=== PATIENT | female | born 1985 | race Caucasian/White ===

== ENCOUNTER 2017-04-07 18:50 | Emergency (ER) | payer OTHER ==
[2017-04-07 19:02] VITALS: BP 102/56; PULSE 81; RESP 16; TEMP 98.4; O2SAT 95
[2017-04-07] MEDS ORDERED: TDAP ADULT 0.5 ML INJ (BOOSTRIX) IM ONE (19:11)
--- NOTE | 2017-04-07 19:11 | EDPHY ---
H & P Time Seen by Provider: 04/07/17 19:02 HPI/ROS: CHIEF COMPLAINT: Left middle finger laceration HISTORY OF PRESENT ILLNESS: Patient was opening a can of beans just prior to arrival and cut the tip of her left middle finger. No weakness or numbness and no other injuries. REVIEW OF SYSTEMS: As above PAST MEDICAL HISTORY: Trying to get , tetanus not up-to-date. General Appearance: Alert and conversant, cooperative. 5 mm flap laceration on the volar side of the left middle finger tip. Does not involve the nail. Well approximated. Flexor and extensor tendon function intact. Normal capillary refill. Normal 2 point discrimination. Emergency Department course/MDM: Digital block discussed and consented, 3 mL is of 0.5% bupivacaine after standard sterile prep. Standard wound care and dressing applied. I think this will heal better without sutures, discussed with the patient and consented. Dressing applied. Tetanus updated. Smoking Status: Never smoked Constitutional: Initial Vital Signs Temperature (C) 36.9 C 04/07/17 18:57 Heart Rate 81 04/07/17 18:57 Respiratory Rate 16 04/07/17 18:57 Blood Pressure 102/56 L 04/07/17 18:57 O2 Sat (%) 95 04/07/17 18:57 O2 Delivery Mode Room Air Allergies/Adverse Reactions: ciprofloxacin [From Cipro] Allergy (Intermediate, Verified 04/29/12 05:26) ciprofloxacin HCl [From Cipro] Allergy (Intermediate, Verified 04/29/12 05:26) Penicillins Allergy (Intermediate, Verified 04/29/12 05:26) Sulfa (Sulfonamide Antibiotics) [Sulfa(Sulfonamide Antibiotics)] Allergy ( Intermediate, Verified 04/29/12 05:26) Home Medications: Medication Instructions Recorded No Medications [NO [place] 1 [place] [facility] [place]ICATIONS[place] Ondansetron Odt [Zofran Odt 4 mg 4 mg PO Q4PRN PRN #7 tab 11/13/15 (*)] MDM/Departure - MDM Medications Given: Discontinued Medications Diphtheria/Tetanus/Acell Pertussis (Boostrix) 0.5 ml IM .ONCE ONE Stop: 04/07/17 19:12 Last Admin: 04/07/17 19:20 Dose: 0.5 ml - Depart Disposition: Home, Routine, Self-Care Clinical Impression: Laceration of left middle finger Condition: Good Instructions: Acute Wounds (ED) Additional Instructions: You got a tetanus booster today. Leave the dressing on and keep it clean and dry for 48 hours, then wound care as instructed. Referrals: Florinda Cazares MD [Primary Care Provider] - As per Instructions
== END 2017-04-07 19:36 | disposition home or self-care (01) ==
DX: S61.213A Laceration without foreign body of left middle finger without damage to nail, initial encounter (principal); Z23 Encounter for immunization; W27.4XXA Contact with kitchen utensil, initial encounter

== ENCOUNTER 2018-04-22 09:25 | Emergency (ER) | payer OTHER ==
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
[2018-04-22] MEDS ORDERED: ONDANSETRON DISINTEGRATING 4 MG TAB PO ONE ×2 (10:10)
[2018-04-22 13:09] VITALS: BP 126/64
== END 2018-04-22 13:07 | disposition home or self-care (01) ==
DX: O9A.211 Injury, poisoning and certain other consequences of external causes complicating pregnancy, first trimester (principal); S19.9XXA Unspecified injury of neck, initial encounter; Z3A.13 13 weeks gestation of pregnancy; Z67.91 Unspecified blood type, Rh negative; V49.40XA Driver injured in collision with unspecified motor vehicles in traffic accident, initial encounter; Y92.410 Unspecified street and highway as the place of occurrence of the external cause; Y99.8 Other external cause status; Y93.89 Activity, other specified

== ENCOUNTER → 2018-09-03 | Outpatient (CLI) | payer OTHER | LOC: FIMAGING 10:07 | PROVIDERS: ATTEND Family Medicine | DX: M54.2 Cervicalgia (principal) ==

== ENCOUNTER 2018-10-26 00:15 | Inpatient (IN) | payer OTHER ==
[2018-10-26] MEDS ORDERED: TERBUTALINE SULFATE 1 MG/ML VIAL IV PRN (00:33)
[2018-10-26] MEDS ORDERED: LIDOCAINE 1% 300 MG/30 ML SDV SC PRN (00:33)
[2018-10-26] MEDS ORDERED: LR 1,000 ML IV PRN (00:33)
[2018-10-26] MEDS ORDERED: IBUPROFEN 600 MG TAB PO PRN (00:33)
[2018-10-26] MEDS ORDERED: EPSOM SALT 454 GM TP PRN (00:33)
[2018-10-26] MEDS ORDERED: MISOPROSTOL 200 MCG TAB PR PRN (00:33)
[2018-10-26] MEDS ORDERED: OXYTOCIN/RINGERS LACTATE 1,000 ML IV PRN (00:33)
[2018-10-26] MEDS ORDERED: OLIVE OIL 118 ML BTL MISC PRN (00:33)
[2018-10-26] MEDS ORDERED: TERBUTALINE SULFATE 1 MG/ML VIAL ONE (00:34)
[2018-10-26] MEDS ORDERED: OXYTOCIN 10 UNIT/ML VIAL ONE (00:34)
[2018-10-26] MEDS ORDERED: OLIVE OIL 118 ML BTL ONE (00:34)
[2018-10-26] MEDS ORDERED: MISOPROSTOL 200 MCG TAB ONE (00:34)
[2018-10-26] MEDS ORDERED: LIDOCAINE 1% 300 MG/30 ML SDV ONE (00:34)
[2018-10-26] MEDS ORDERED: AMMONIA AROMATIC 1 EACH AMP IH ONE (00:34)
--- NOTE | 2018-10-26 00:52 | PDGENHP ---
History and Physical History and Physical: Care: [facility] HPI: Patient is a [id number] with IUP @ 40-0 weeks that presents to L&D with complaints of contractions over the last 48 hours, but worse since 2099. she denies any LOF, VB. She reports +FM. She rates pain with contractions 05/08, denies any alleviating or aggravating factors. EDC: 10/26/18 which is based on Ultrasound at 8 weeks. Her is complicated by: Rh Negative, unsure LMP- EDC by 8wk US, GBS+ Review of Systems: Constitutional: Denies any fever, chills, or fatigue HEENT: denies any visual changes, difficulty swallowing, hearing loss Cardiovascular: Denies any chest pain, palpitations, leg swelling Respiratory: denies any cough, wheezing, or shortness of breathe GI: Denies any nausea, vomiting, diarrhea, constipation : denies any dysuria, urgency, frequency, vaginal bleeding Musculoskeletal: denies any muscle or bone pain Skin: denies any rashes Neuro: denies any headache, seizures, lightheadedness, dizziness, or loss of consciousness Psychiatric: denies any depression, anxiety, or SI/HI thoughts HISTORY: Previous OB history: 6#8, SAB 2016, EAB 2009 Past medical history: noncontributory Past surgical history: oral surgery, breast lumpectomy Social: Denies any alcohol, tobacco, or drug use. Family history: Not relevant Medications: PNV, rhogam Allergies (list reaction): sulfa, cipro, PCN- throat swelling LABS: Rh: A Negative ABS: Neg Rubella: Immune HbsAg: NR HIV: NR VDRL: NR 1hr: 82 GC: Neg Chlamydia: Neg Pap: Normal GBS: + PHYSICAL EXAM: Constitutional: WN, A&Ox3 HEENT: normocephalic atraumatic, supple Skin: Warm, dry, intact Heart: RRR, no murmur Chest: CTA-B Abdomen: Soft, nontender, gravid SVE: /-1 Extremities: trace edema, negative homans sign Neuro: grossly normal Psych: normal affect assessment: FHT baseline 130 +accels, no decels, moderate variability Contractions: toco q 2-5 min Assessment: 1) [id number] with IUP@40-0wks 2) active labor 3) GBS + 4) Cat 1 FHR tracing Plan: 1) Admit to L&D 2) IV abx, vancomycin (pharm to dose) 3) reassess 2hr/PRN Today's visit was approximately 30 min, of which >50% of visit 20 min, was spent face to face with pt on direct counseling/coordination of care.
[2018-10-26 00:56] LABS: PLATELET COUNT 260 10^3/uL (150-400)
[2018-10-26] MEDS ORDERED: VANCOMYCIN 750 MG in D5W 150 ML IV SCH (01:30)
--- NOTE | 2018-10-26 02:38 | OBDEL ---
Info Type: Vaginal Presentation at Delivery: Vertex L&D Analgesia/Anesthesia Type: None GBS+: Yes Antibiotic Used for + GBS: Vancomycin Intrapartum Medications: Generic Name Dose Route Start Last Admin Trade Name Iris PRN Reason Stop Dose Admin Lactated Ringer's 1,000 mls @ 0 mls/hr 10/26/18 00:33 10/26/18 01:00 Lr IV 10/27/18 00:32 1,000 mls PRN PRN Administration SEE PROTOCOL CONDITIONS Protocol Per Protocol Vancomycin HCl 750 mg/ 150 mls @ 150 mls/hr 10/26/18 01:30 10/26/18 01:00 Dextrose IV 11/25/18 01:29 150 mls Q12H MYRON Administration Indications for Delivery: Spontaneous Labor, SROM Vaginal Delivery - Delivery Provider Delivery Physician/CNM: Fatmata Roberts - Labor and Delivery Onset of Contractions Date: 10/25/18 Onset of Contractions Time: 22:00 Onset of Contractions Type: Spontaneous Rupture of Membranes Date: 10/26/18 Rupture of Membranes Time: 01:30 Rupture of Membranes Type: Spontaneous Amniotic Fluid Color: Clear Dilation Complete Date: 10/26/18 Dilation Complete Time: 01:59 Placenta Delivery Date: 10/26/18 Placenta Delivery Time: 02:13 Total Hours of Labor: 4 Laceration: 1st Degree Repair: 3-0, Vicryl Vaginal Sponge Count Correct: Yes Vaginal Needle Count Correct: Yes Vaginal Sweep Performed: Yes EBL: 250 Delivery Events: None Delivery Comment: delivered without difficulty. Data RADHA: 10/26/18 Gestational Age: 40 week(s) and 0 day(s) Carrasco Delivery Date: 10/26/18 Delivery Time: 02:02 Sex of : Female Score (1 Min): 8 Score (5 Min): 9 ICD10 Worksheet Patient Problems: Problems Problem Status Onset First degree perineal laceration Acute Precipitous delivery Acute (spontaneous vaginal delivery) Acute - ICD10 Problem Qualifiers (1) (spontaneous vaginal delivery) (2) Precipitous delivery (3) First degree perineal laceration
[2018-10-26] MEDS ORDERED: oxyCODONE IR 5 MG TAB PO PRN (02:42)
[2018-10-26] MEDS ORDERED: HYDROCORTISONE 0.5% CREAM TP PRN (02:42)
[2018-10-26] MEDS ORDERED: SIMETHICONE 80 MG TAB CHEW PO PRN (02:42)
[2018-10-26] MEDS: ACETAMINOPHEN 325 MG TAB PO SCH ×3 (07:45→20:47)
[2018-10-26] MEDS: DOCUSATE SODIUM 100 MG CAP PO PRN ×2 (07:45→20:46)
[2018-10-26] MEDS: IBUPROFEN 600 MG TAB PO SCH ×3 (09:05→20:46)
[2018-10-27] MEDS: IBUPROFEN 600 MG TAB PO SCH ×2 (05:47→08:55)
[2018-10-27] MEDS: ACETAMINOPHEN 325 MG TAB PO SCH ×3 (05:48→09:15)
--- NOTE | 2018-10-27 08:38 | OBPP ---
Progress Note Assessment/Plan: Assessment: 1. 2> PP day 1 3. BF well Plan: 1. D/C home today 10/27/18 08:36 Subjective/ Course: 10/27/18 08:37 Pt doing well, breast feeding well, voiding w/o difficulty, pain well controlled with PO medication. Flatus, no BM. Minimal bleeding. Objective: 10/26/18 00:35 Patient ABO/Rh A NEGATIVE 10/26/18 05:45 Temp Pulse Resp BP Pulse Ox 36.3 C 84 16 110/71 10/26/18 20:45 10/26/18 20:45 10/26/18 20:45 10/26/18 20:45 VSS Uterine Position/Fundal Height: Umbilicus -1 Uterine Tone: Firm
--- NOTE | 2018-10-27 08:42 | OBGCSDC ---
General Delivery Information - General Info : 4 Para: 2 Abortions: 2 Type: Vaginal L&D Analgesia/Anesthesia Type: Local Admission Date: 10/26/18 Labs: Patient ABO/Rh A NEGATIVE 10/26/18 05:45 Hct 39.3 % (38.0-47.0) 10/26/18 00:35 - Hospital Course : 10/27/18 08:37 Pt doing well, breast feeding well, voiding w/o difficulty, pain well controlled with PO medication. Flatus, no BM. Minimal bleeding. Vaginal - Delivery Provider Delivery Physician/CNM: Fatmata Roberts - Diagnosis Labor: Spontaneous Rupture of Membranes Type: Spontaneous Amniotic Fluid Color: Clear Laceration: 1st Degree Repair: 3-0, Vicryl Delivery Events: None - Delivery EBL: 250 Data RADHA: 10/26/18 Gestational Age: 40 week(s) and 1 day(s) Carrasco Delivery Date: 10/26/18 Delivery Time: 02:02 Sex of : Female [place] Weight (gm): 3372 kg Score (1 Min): 8 Score (5 Min): 9 Discharge Information - Discharge Information Prescriptions: Ibuprofen [Motrin (*)] 600 mg PO Q6H #30 tab Instruction/Follow Up: Two Weeks, Four Weeks, Six Weeks (care of self and baby for 2 weeks.)
[2018-10-27 09:32] VITALS: BP 113/78
== END 2018-10-27 12:15 | disposition home or self-care (01) | DRG 807 ==
LOC: FLD 00:15 → FOB 04:05
PROVIDERS: ADMIT Advanced Practice Midwife; ATTEND Advanced Practice Midwife
DX: O70.0 First degree perineal laceration during delivery (principal); O99.820 Streptococcus B carrier state complicating pregnancy; Z37.0 Single live birth; Z3A.40 40 weeks gestation of pregnancy
CPT/HCPCS: J2590; J3105; J3370